=== PATIENT | female | born 1980 | race Caucasian/White ===

== ENCOUNTER 2021-07-11 17:18 | Emergency (ER) | payer OTHER ==
[~2021-07-11 17:18] MED LIST: ATARAX25 MG PO; BACLOFEN 10MG T10 MG PO; KLONOPIN1 MG PO; MINIPRES1 MG PO; PROTONIX 40MG T40 MG PO; SKELAXIN800 MG PO; TYLENOL ARTHRI650 MG PO; VITAMIN B-121000 MC1 PO; VITAMIN D PO; ZOLOFT100 MG PO
[2021-07-11 20:51] LABS: BILIRUBIN NEGATIVE (NEGATIVE); BLOOD NEGATIVE Ery/uL (NEGATIVE); CLARITY CLEAR (CLEAR); COLOR YELLOW (YELLOW); GLUCOSE (U) NORMAL (NORMAL); LEUKOCYTES NEGATIVE Leu/uL (NEGATIVE); NITRITE NEGATIVE (NEGATIVE); PROTEIN NEGATIVE (NEGATIVE); SPECIFIC GRAVITY >=1.030 (1.001-1.030); UROBILINOGEN 0.2 mg/dL (0.2-1.0); pH 5.5 (5.0-9.0)
[2021-07-11] MEDS ORDERED: MEDROL 4MG DOSEP4 MG PO (22:38)
[2021-07-11] MEDS ORDERED: CYCLOBENZAPRINE10 MG PO (22:38)
[2021-07-11] MEDS ORDERED: NORCO 5-325 TA1 EACH PO (22:38)
== END 2021-07-11 23:08 | disposition home or self-care (01) ==
LOC: FER 17:18
PROVIDERS: Emergency Medicine Emergency Medical Services
DX: S33.5XXA Sprain of ligaments of lumbar spine, initial encounter (principal); S50.11XA Contusion of right forearm, initial encounter; S40.011A Contusion of right shoulder, initial encounter; J45.909 Unspecified asthma, uncomplicated; F17.200 Nicotine dependence, unspecified, uncomplicated; Z88.6 Allergy status to analgesic agent; V48.6XXA Car passenger injured in noncollision transport accident in traffic accident, initial encounter; Y92.410 Unspecified street and highway as the place of occurrence of the external cause
CPT/HCPCS: 70450; 71046; 72125; 72131; 73090; 81003; J1100; J1170; J2405; J3360; Q9967

== ENCOUNTER 2022-01-29 11:21 | Emergency (ER) | payer OTHER ==
[~2022-01-29 11:21] MED LIST changes: +CYCLOBENZAPRINE10 MG PO; +MEDROL 4MG DOSEP4 MG PO; +NORCO 5-325 TA1 EACH PO
[2022-01-29] MEDS ORDERED: ONDANSETRON HCL4 MG PO (13:34)
[2022-01-29] MEDS ORDERED: NORCO 5-325 TA1 EACH PO (13:34)
[2022-02-05] MEDS ORDERED: BUSPIRONE HCL15 MG PO (10:48)
[2022-02-05] MEDS ORDERED: PROMETHAZINE-C473 ML PO (10:51)
== END 2022-01-29 16:49 | disposition home or self-care (01) ==
LOC: FER 11:21
DX: K42.9 Umbilical hernia without obstruction or gangrene (principal); Z88.6 Allergy status to analgesic agent; Z53.29 Procedure and treatment not carried out because of patient's decision for other reasons
CPT/HCPCS: 99283

== ENCOUNTER → 2022-02-11 | Day surgery (SDC) | payer OTHER ==
[~2022-02-11] VITALS: Ht 160 cm; Wt 83.0 kg
[~2022-02-11] MED LIST changes: +ACETAMINOPHEN500 M1 PO; +BUSPIRONE HCL15 MG PO; +COLACE100 MG PO; +ONDANSETRON HCL4 MG PO; +OXY-IR 5MG5 MG PO; +PROMETHAZINE-C473 ML PO
== END | disposition home or self-care (01) ==
LOC: FAS 07:21
DX: K43.6 Other and unspecified ventral hernia with obstruction, without gangrene (principal); I10 Essential (primary) hypertension; J45.909 Unspecified asthma, uncomplicated; K21.9 Gastro-esophageal reflux disease without esophagitis; M19.90 Unspecified osteoarthritis, unspecified site; F41.9 Anxiety disorder, unspecified; F31.9 Bipolar disorder, unspecified; F17.210 Nicotine dependence, cigarettes, uncomplicated; Z88.5 Allergy status to narcotic agent; Z88.6 Allergy status to analgesic agent; Z88.8 Allergy status to other drugs, medicaments and biological substances; Z79.899 Other long term (current) drug therapy; Z72.89 Other problems related to lifestyle
CPT/HCPCS: J1100; J1170; J1644; J1885; J2250; J2405; J2704; J2710; J3010; J3370; J7050; J7120